=== PATIENT | male | born 1965 | race Caucasian/White ===

== ENCOUNTER 2016-10-26 21:22 | Emergency (ER) | payer OTHER ==
[~2016-10-26] VITALS: Ht 170.2 cm; Wt 80.0 kg
[2016-10-26] MEDS ORDERED: ONDANSETRON HCL 4MG/2ML VIAL IV ONE (23:30)
[2016-10-26] MEDS ORDERED: BACITRACIN ZINC OINT UDPKT TOP ONE (23:30)
[2016-10-26] MEDS ORDERED: MORPHINE SULFATE 10 MG/ML CPJ IM ONE (23:30)
[2016-10-26] MEDS ORDERED: LIDOCAINE HCL 1% 20ML VIAL (Pyxis) INJ MC ONE (23:30)
[2016-10-26] MEDS ORDERED: CEFTRIAXONE SODIUM 250 MG/VIAL IM ONE (23:30)
[2016-10-26] MEDS ORDERED: ONDANSETRON HCL 4MG/2ML VIAL IM ONE (23:45)
[2016-10-27] MEDS ORDERED: IBUPROFEN 600MG TABLET PO ONE (01:00)
[2016-10-27 01:10] VITALS: BP 144/80
== END 2016-10-27 01:15 | disposition home or self-care (01) ==
LOC: ER 21:50
DX: L02.414 Cutaneous abscess of left upper limb (principal); F11.10 Opioid abuse, uncomplicated; Z90.49 Acquired absence of other specified parts of digestive tract; Z86.19 Personal history of other infectious and parasitic diseases
CPT/HCPCS: 10060; 96372; 99284; J0696; J2270; J2405; J3490; X7700; Z7610

== ENCOUNTER 2016-12-22 13:03 | Emergency (ER) | payer OTHER ==
[~2016-12-22] VITALS: Ht 172.7 cm; Wt 75.0 kg
[2016-12-22] MEDS ORDERED: HYDROCODONE/ACETAMINOPHEN 5/325MG TABLET PO STA (13:51)
[2016-12-22] MEDS ORDERED: CEFTRIAXONE SODIUM 1 G/VIAL IM ONE (14:00)
[2016-12-22] MEDS ORDERED: KETOROLAC 60MG/2ML VIAL IM ONE (14:00)
[2016-12-22] MEDS ORDERED: LIDOCAINE HCL 1% 20ML VIAL (Pyxis) INJ INFIL ONE (14:00)
[2016-12-22] MEDS ORDERED: SODIUM CHLORIDE 0.9% 1000ML BAG (SEPSIS BOLUS) IV ONE (14:00)
[2016-12-22 14:24] VITALS: BP 139/96
[2016-12-22 14:35] LABS: CHLORIDE 106 mEq/L (98-107)
[2016-12-22 14:43] LABS: CARBON DIOXIDE 29 mEq/L (21-32); ETHANOL BLOOD < 10 mg/dL
[2016-12-22 14:47] LABS: INR 1.1; PROTHROMBIN TIME 11.2 sec
[2016-12-22 14:56] LABS: BASOPHILS % 0.1 % (0.0-2.0); EOSINOPHILS % 0.4 % (0.0-5.0); HEMATOCRIT. 39.8 % (42.0-52.0); HEMOGLOBIN. 13.7 g/dL (14.0-18.0); LYMPHOCYTES % 11.8 % (20.0-50.0); MEAN CORPUSCULAR HEMOGLOBIN 27.7 pg (28.0-32.0); MEAN CORPUSCULAR VOLUME 80.4 fL (80.0-94.0); MEAN PLATELET VOLUME 10.1 fl (7.4-10.4); MONOCYTES % 5.9 % (2.0-8.0); NEUTROPHILS % 81.8 % (40.0-76.0); PLATELET 85 x1000/uL (130-400); RED BLOOD CELL COUNT 4.95 mill/uL (4.7-6.1); RED CELL DISTRIBUTION WIDTH 14.7 % (11.6-14.6)
== END 2016-12-22 14:46 | disposition left against medical advice (07) ==
LOC: ER 13:03
DX: L03.113 Cellulitis of right upper limb (principal); I10 Essential (primary) hypertension; F11.10 Opioid abuse, uncomplicated
CPT/HCPCS: 36415; 80053; 83605; 85025; 85610; 96372; 99284; G0482; J0696; J1885; J3490; J7030

== ENCOUNTER 2017-09-23 22:50 | Emergency (ER) | payer OTHER ==
[~2017-09-23] VITALS: Ht 167.6 cm; Wt 73.0 kg
[2017-09-23 22:55] VITALS: BP 162/100
== END 2017-09-24 06:05 | disposition left against medical advice (07) ==
LOC: ER 22:50
DX: L02.413 Cutaneous abscess of right upper limb (principal); Z53.21 Procedure and treatment not carried out due to patient leaving prior to being seen by health care provider